=== PATIENT | male | born 2000 | race Caucasian/White ===

== ENCOUNTER 2022-01-26 22:53 | Emergency (ER) | payer SELFPAY ==
[2022-01-26 23:34] VITALS: BP 93/56; PULSE 86; RESP 20; TEMP 36.6; O2SAT 97; BMI 23.7
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
[2022-01-27] MEDS: silver sulfadiazine cream 1% 50 gm 1 APPLIC TOPICAL (00:30)
[2022-01-27 00:31] VITALS: BP 102/68; PULSE 78; RESP 18; O2SAT 99
--- NOTE | 2022-01-27 11:28 | DCPLANNER ---
Addendum entered by Teodora Lind 02/02/22 08:19: fast food services manager spoke with Kay at [facility] to confirm if an appointment had been scheduled for patient. fast food services manager was told that clinic was unable to contact patient with several attempts made, and unable to leave a voicemail, patients phone is not working. Original Note: fast food services manager had message to schedule a follow up appointment for patient with [facility]. fast food services manager sent patients information to the [facility] to be reviewed. Patients information will be printed and reviewed. Clinic will call patient with appointment information.
== END 2022-01-27 00:33 | disposition home or self-care (01) ==
PROVIDERS: Emergency Provider Physician Assistant
DX: T23.212A Burn of second degree of left thumb (nail), initial encounter (principal); T31.0 Burns involving less than 10% of body surface; X10.2XXA Contact with fats and cooking oils, initial encounter
CPT/HCPCS: 99282; A6446